=== PATIENT | male | born 1980 | race Caucasian/White ===

== ENCOUNTER 2019-03-28 19:06 | Emergency (ER) | payer SELFPAY ==
[~2019-03-28] VITALS: Ht 182.9 cm; Wt 58.0 kg
[2019-03-28 20:04] LABS: HEMATOCRIT 37.4 % (39.0-50.0); IMMATURE GRANULOCYTES 0.5 % (0.0-5.0); MEAN CELL VOLUME 96.6 fL CALC (80.0-100.0); MEAN CORPUSCULAR HGB 33.6 pG CALC (26.0-32.0); MEAN CORPUSCULAR HGB CONC 34.8 g/L CALC (32.0-36.0); NEUT# 11.77 thou/uL (1.82-7.42); RED BLOOD COUNT 3.87 mill/uL (4.70-6.10); RED CELL DISTRI WIDTH 12.3 % (11.5-15.5)
[2019-03-28 20:16] LABS: ANION GAP 12 (6-22 (CALC)); BUN 10 mg/dL (9-20); BUN/CREATININE RATIO 14 (12-20 (CALC)); CARBON DIOXIDE 30 mmol/l (22-30); CHLORIDE 101 mmol/l (95-108); CREATININE 0.7 mg/dL (0.7-1.3); GFR > 60 ML/MIN (>=60 (CALC)); GFR FOR AFR.AMER. > 60 ML/MIN (>=60 (CALC)); SODIUM 138 mmol/l (137-146)
[2019-03-28] MEDS ORDERED: BIAXIN500 MG PO (20:50)
[2019-03-28 21:20] VITALS: BP 120/82
== END 2019-03-28 21:20 | disposition home or self-care (01) | DRG 195 ==
LOC: ED 19:06
PROVIDERS: Family Medicine
DX: J18.9 Pneumonia, unspecified organism (principal)